=== PATIENT | male | born 1995 | race Caucasian/White ===

== ENCOUNTER 2021-06-12 11:54 | Inpatient (IN) | payer SELFPAY ==
[2021-06-12 11:54] VITALS: BMI 23.1
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
[2021-06-12 14:00] VITALS: BP 133/77; PULSE 78; RESP 18; TEMP 36.6; O2SAT 97
--- NOTE | 2021-06-12 16:11 | PC.SOCIAL ---
Patient attended group.
[2021-06-12 20:38] VITALS: BP 135/83; PULSE 71; RESP 19; TEMP 36.4; O2SAT 98
[2021-06-13 06:00] VITALS: BP 122/73; PULSE 69; RESP 17; TEMP 36.7; O2SAT 98
[2021-06-13] MEDS: escitalopram 10 mg Tablet 20 MG PO (08:52)
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
[2021-06-13] MEDS: ARIPiprazole 2 mg Tablet PO (11:14)
[2021-06-13 14:00] VITALS: BP 136/78; PULSE 79; RESP 18; TEMP 36.7; O2SAT 97
--- NOTE | 2021-06-13 16:56 | PC.SOCIAL ---
Patient attended group.
[2021-06-13 20:22] VITALS: BP 142/85; PULSE 67; RESP 17; O2SAT 98
[2021-06-14 06:00] VITALS: BP 128/85; PULSE 69; RESP 17; O2SAT 98
[2021-06-14] MEDS: escitalopram 10 mg Tablet 20 MG PO (08:45)
[2021-06-14] MEDS: ARIPiprazole 2 mg Tablet PO (08:45)
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
[2021-06-14 14:00] VITALS: BP 126/72; PULSE 95; RESP 17; TEMP 36.7; O2SAT 97
[2021-06-14 19:51] VITALS: BP 134/85; PULSE 82; RESP 17; TEMP 36.5; O2SAT 97
[2021-06-14] MEDS: trazodone 50 mg Tablet PO (21:02)
--- NOTE | 2021-06-14 22:14 | PC.NURSE ---
2101 Rec'd trazodone for sleep. It was effective.
[2021-06-15 06:00] VITALS: BP 110/65; PULSE 75; RESP 18; TEMP 36.5; O2SAT 97
--- NOTE | 2021-06-15 07:27 | P.NPUPN_ITS ---
Subjective NPU Subjective: He was found awake in bed sitting up and reading the Bible at 7:15 AM. He had some coffee and we mostly talked about the health benefits and side effects of coffee. Abilify will be increased to 5 mg today. He has not had side effects. He says that he slept well last night. Mental Status Exam MSE Comments: This is a 26-year-old appropriate weight male who appears approximately his stated age. He is pleasant and cooperative with the evaluation. He is dressed in hospital scrubs and his grooming is good. psychomotor activity mildly decreased. Speech is at a regular rate and rhythm, normal volume, good articulation, not pressured. Alert, oriented X3 Attention and concentration appears to be normal. Memory is intact Mood is depressed. Affect is constricted. He frequently has a half laugh and half smirk on his face after he says something. Thought process is logical and goal-directed. Thought content: Denies auditory and visual hallucinations. He is obviously delusional and has some paranoid ideation. He denies suicidal ideation. And no homicidal ideation. Fund of knowledge is average. Insight and judgment appear to be poor. Impulse control is poor. Cognition: Patient Appearance: Appropriate Ability to Follow Directions: Good Comprehension Ability: Understands Concepts Hallucination Type: None Delusion Description: Not Present Thought Process: Appropriate Affect: Affect Description: Appropriate Behavior: Patient Behavior: Appropriate Speech Pattern: Appropriate Vitals/I&O/Wt Last Vital Signs Temp 97.7 F 06/15/21 06:00 Pulse 75 06/15/21 06:00 Resp 18 06/15/21 06:00 BP 110/65 06/15/21 06:00 Pulse Ox 97 06/15/21 06:00 A&P Assessment and plan (1) Schizophrenia: Status: Acute (2) Suicidal ideation: Status: Acute Plan This is a 26-year-old male who sounds like he has a prodrome for schizophrenia and now has paranoia and delusions Plan: 1. Continue current medication. We will increaseAbilify to 5 mg today. Lexapro 20 mg. 2. Continue every 15 minute checks for safety. 3. Encourage individual, group and milieu therapies. 4. Encourage sober living treatment after discharge at the highest level of care to which he is willing to commit. 5. We will monitor for safety for himself in the community prior to discharge. Involuntary Hold Information 96 Hour Hold: 96 Hour Involuntary Admission: No Attestations NPU Medical Necessity Statement*: Inpatient hospitalization is medically necessary and the clinically appropriate intervention at this time. We will initiate medications and make changes as indicated. Coding Level of Care Code Acute Smash Fixer for [facility] Fwd Diagnoses Schizophrenia F20.9 Suicidal ideation R45.851
[2021-06-15] MEDS: ARIPiprazole 10 mg Tablet 5 MG PO (08:11)
[2021-06-15] MEDS: escitalopram 10 mg Tablet 20 MG PO (08:12)
--- NOTE | 2021-06-15 08:24 | PC.NURSE ---
In bed resting, arouses to voice. Informed that discharge was in computer. States his ride will not be able to be here until 100 PM. Denies pain. Denies SI/HI and AVH at this time. Reports no anxiety. Reports anxiety has improved.
--- NOTE | 2021-06-15 08:32 | PC.NURSE ---
AM Assessment In room resting, arouses to voice. Denies pain. Denies HI and AVH at this time. Does report passing suicidal thoughts with no plan. States, they just come and go, nothing I would act on. Contracted for safety. Verbalizes understanding to come and talk to staff if suicidal thoughts become more intrusive. In bed reading bible, calm and cooperative.
[2021-06-15 14:00] VITALS: BP 124/76; PULSE 70; RESP 16; TEMP 36.8; O2SAT 99
[2021-06-15 20:23] VITALS: BP 128/84; PULSE 66; RESP 16; TEMP 36.9; O2SAT 99
[2021-06-15] MEDS: trazodone 50 mg Tablet PO (20:49)
[2021-06-16 06:00] VITALS: BP 120/76; PULSE 88; RESP 18; TEMP 36.4; O2SAT 98
[2021-06-16] MEDS: escitalopram 10 mg Tablet 20 MG PO (09:20)
[2021-06-16] MEDS: ARIPiprazole 10 mg Tablet 5 MG PO (09:20)
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
[2021-06-16 14:00] VITALS: BP 145/85; PULSE 74; RESP 17; TEMP 36.7; O2SAT 95
[2021-06-16 19:50] VITALS: BP 143/79; PULSE 70; RESP 18; TEMP 37.1; O2SAT 99
[2021-06-16] MEDS: trazodone 50 mg Tablet PO (21:03)
[2021-06-17 06:00] VITALS: BP 113/73; PULSE 90; RESP 16; TEMP 36.3; O2SAT 98
[2021-06-17] MEDS: ARIPiprazole 10 mg Tablet PO (09:05)
[2021-06-17] MEDS: escitalopram 10 mg Tablet 20 MG PO (09:05)
--- NOTE | 2021-06-17 13:49 | P.NPUPN_ITS ---
Subjective NPU Subjective: He says that he is doing well. He slept well last night. He did not have any side effects from the Abilify 10 mg and Lexapro this morning. He asked if it would be considered masturbating if a woman rubbed her crotch against a sink. He says that he has seen women do that. At first I thought he said he had seen a woman do that here. And [facility] He has seen that before also. I told him that was certainly inappropriate for female to do that in front of a fawn. I told him I thought that was very unusual and had never seen that happen before. Mental Status Exam MSE Comments: This is a 26-year-old appropriate weight male who appears approximately his stated age.? He is pleasant and cooperative with the e valuation.? He is dressed in hospital scrubs and his grooming is good. psychomotor activity mildly decreased. Speech is at a regular rate and rhythm, normal volume, good articulation, not pressured. Alert, oriented X3 Attention and concentration appears to be normal. Memory is intact Mood is depressed.? Affect is constricted.? He frequently has a half laugh and half smirk on his face after he says something. Thought process is logical and goal-directed. Thought content:? Denies auditory and visual hallucinations.? He is obviously delusional and has some paranoid ideation.? He denies suicidal ideation.? And no homicidal ideation.? Fund of knowledge is average. Insight and judgment appear to be poor. Impulse control is poor. Cognition: Patient Appearance: Appropriate Ability to Follow Directions: Good Patient Orientation (long list): Person, Place, Time, Name and Age Comprehension Ability: Understands Concepts Hallucination Type: None Delusion Description: Not Present Thought Process: Appropriate Affect: Affect Description: Appropriate Behavior: Patient Behavior: Appropriate and Cooperative Speech Pattern: Appropriate and Clear Vitals/I&O/Wt Last Vital Signs Temp 97.4 F L 06/17/21 06:00 Pulse 90 06/17/21 06:00 Resp 16 06/17/21 06:00 BP 113/73 06/17/21 06:00 Pulse Ox 98 06/17/21 06:00 A&P Assessment and plan (1) Schizophrenia: Status: Acute (2) Suicidal ideation: Status: Acute Plan This is a 26-year-old male who sounds like he has a prodrome for schizophrenia and now has paranoia and delusions Plan: 1.? Continue current medication.? Increase Abilify to 10 mg daily.. Lexapro 20 mg. 2.? Continue every 15 minute checks for safety. 3.? Encourage individual, group and milieu therapies. 4.? Encourage sober living treatment after discharge at the highest level of care to which he is willing to commit. 5.? We will monitor for safety for himself in the community prior to discharge. Involuntary Hold Information 96 Hour Hold: 96 Hour Involuntary Admission: No Attestations NPU Medical Necessity Statement*: Inpatient hospitalization is medically necessary and the clinically appropriate intervention at this time. We will initiate medications and make changes as indicated. Coding Level of Care Code Acute Handbag Framer for Eric Broderick Diagnoses Schizophrenia F20.9 Suicidal ideation R45.858
[2021-06-17 14:00] VITALS: BP 138/93; PULSE 110; RESP 17; TEMP 36.7; O2SAT 98
[2021-06-17] MEDS: trazodone 50 mg Tablet PO (20:39)
[2021-06-17 22:00] VITALS: BP 132/78; PULSE 66; RESP 17; TEMP 36.8; O2SAT 99
[2021-06-18 05:21] VITALS: BP 118/71; PULSE 93; RESP 17; TEMP 36.7; O2SAT 98
[2021-06-18] MEDS: escitalopram 10 mg Tablet 20 MG PO (09:50)
[2021-06-18] MEDS: ARIPiprazole 10 mg Tablet PO (09:50)
--- NOTE | 2021-06-18 09:53 | PC.NURSE ---
AM assessment In day area putting puzzle together. To room to complete assessment. Flat affect noted. States slept well. Continues to report suicidal thoughts with no plan. States, those thoughts just kind of come and go. Contracted for safety if thoughts become worse or if he feels like hurting himself. States he will let this RN or other staff know if thoughts arise or become more intrusive. Denies pain. Denies HI and AVH at this time. Once assessment was finished went back to day area and started puzzle again.
[2021-06-18 14:00] VITALS: BP 135/81; PULSE 70; RESP 17; TEMP 36.8; O2SAT 99
--- NOTE | 2021-06-18 14:19 | P.NPUPN_ITS ---
Subjective NPU Subjective: He says that he is doing better. I asked him about his family killing people and he said that a lot of people dying and they put blame on the virus. He has kept a virus to really kill people. We then talked about what a virus was and went down that path. He certainly is not preoccupied with his family killing people now. It is much decreased. He denies any side effects from the Abilify 10 mg. Mental Status Exam MSE Comments: This is a 26-year-old appropriate weight male who appears approximately his stated age.? He is pleasant and cooperative with the evaluation.? He is dressed in hospital scrubs and his grooming is good. psychomotor activity mildly decreased. Speech is at a regular rate and rhythm, normal volume, good articulation, not pressured. Alert, oriented X3 Attention and concentration appears to be normal. Memory is intact Mood is mildly but better. Affect is constricted.? He frequently has a half laugh and half smirk on his face after he says something. Thought process is logical and goal-directed. Thought content:? Denies auditory and visual hallucinations.? He is obviously delusional and has some paranoid ideation.? They seem to be decreasing. He jorge es suicidal ideation.? And no homicidal ideation.? Fund of knowledge is average. Insight and judgment appear to be poor. Impulse control is poor. Cognition: Patient Appearance: Appropriate Ability to Follow Directions: Good Patient Orientation (long list): Person, Place, Name, Age, Day of Month and Year Comprehension Ability: Understands Concepts Hallucination Type: None Delusion Description: Not Present Thought Process: Disorganized Affect: Affect Description: Appropriate Behavior: Patient Behavior: Appropriate and Cooperative Speech Pattern: Appropriate and Clear Vitals/I&O/Wt Last Vital Signs Temp 98.0 F 06/18/21 05:21 Pulse 93 06/18/21 05:21 Resp 17 06/18/21 05:21 BP 118/71 06/18/21 05:21 Pulse Ox 98 06/18/21 05:21 A&P Assessment and plan (1) Schizophrenia: Status: Acute (2) Suicidal ideation: Status: Acute Plan This is a 26-year-old male who sounds like he has a prodrome for schizophrenia and now has paranoia and delusions Plan: 1.? Continue current medication.? Increase Abilify to 10 mg daily.. Lexapro 20 mg. 2.? Continue every 15 minute checks for safety. 3.? Encourage individual, group and milieu therapies. 4.? Encourage sober living treatment after discharge at the highest level of care to which he is willing to commit. 5.? We will monitor for safety for himself in the community prior to discharge. Involuntary Hold Information 96 Hour Hold: 96 Hour Involuntary Admission: No Attestations NPU Medical Necessity Statement*: Inpatient hospitalization is medically necessary and the clinically appropriate intervention at this time. We will initiate medications and make changes as indicated. Coding Level of Care Code Acute Doctor Of Podiatric Medicine for g Fwd Diagnoses Schizophrenia F20.9 Suicidal ideation R45.859
--- NOTE | 2021-06-18 14:40 | PC.SOCIAL ---
Patient attended and participated in group.
[2021-06-18 19:56] VITALS: BP 129/86; PULSE 76; RESP 18; TEMP 36.8; O2SAT 100
[2021-06-18] MEDS: trazodone 50 mg Tablet PO (21:10)
--- NOTE | 2021-06-18 23:34 | PC.NURSE ---
2109-requested trazodone for sleep. 2209- It was effective.
[2021-06-19 06:00] VITALS: BP 123/68; PULSE 86; RESP 18; TEMP 36.6; O2SAT 97
[2021-06-19] MEDS: ARIPiprazole 10 mg Tablet PO (08:25)
[2021-06-19] MEDS: escitalopram 10 mg Tablet 20 MG PO (08:25)
[2021-06-19 14:00] VITALS: BP 130/79; PULSE 70; RESP 16; TEMP 36.6; O2SAT 98
--- NOTE | 2021-06-19 19:40 | P.NPUPN_ITS ---
Subjective NPU Subjective: Patient presents today reporting that things are going better each day. He reports he is tolerating the medication. However he did express some concern about going home versus going to some kind of programming. Reporting that he feels like he may need some place in between here and home for things to work out the best. He reports he is eating and sleeping better. We discussed working with his family and the [place] facility to explore options for safe discharge. Mental Status Exam MSE Comments: This is a slender white male in hospital scrubs with adequate grooming and limited eye contact. No abnormal movements except for mild psychomotor retardation. Cooperative with exam in no acute distress. Speech was slightly decreased rate and volume. Mood described as better , affect slightly subdued with frequent inappropriate smiling. Thought process organized. Thought contact: patient denies suicidal or homicidal ideation, there were no delusions reported but continued concerns for slight paranoia, patient denied auditory or visual hallucinations, with some delay before answering Attention and concentration appeared intact and memory appeared mostly reliable but none were formally tested. Patient is alert and oriented times three. Insight and judgment appear fair and impulse control appears limited. Vitals/I&O/Wt Last Vital Signs Temp 98.2 F 06/19/21 21:12 Pulse 88 06/19/21 21:12 Resp 16 06/19/21 21:12 BP 123/81 06/19/21 21:12 Pulse Ox 96 06/19/21 21:12 A&P Assessment and plan (1) Schizophrenia: Status: Acute (2) Suicidal ideation: Status: Acute Plan This is a 26-year-old male who sounds like he has a prodrome for schizophrenia and now has paranoia and delusions Plan: 1.? Continue current medication.? Increased Abilify to 10 mg daily.??Lexapro 20 mg. 2.? Continue every 15 minute checks for safety. 3.? Encourage individual, group and milieu therapies. 4.? Encourage sober living treatment after discharge at the highest level of care to which he is willing to commit. 5.? We will work with his family and the [facility] to determine whether discharge prior to an opening is feasible. Involuntary Hold Information 96 Hour Hold: 96 Hour Involuntary Admission: No Attestations NPU Medical Necessity Statement*: Inpatient hospitalization is medically necessary and the clinically appropriate intervention at this time.? We will initiate medications and make changes as indicated. Likely length of stay 1 to 3 days. Coding Level of Care Code Acute Calculation Reviewer for g Fwd Diagnoses Schizophrenia F20.9 Suicidal ideation R45.851
[2021-06-19] MEDS: trazodone 50 mg Tablet PO (20:56)
[2021-06-19 21:12] VITALS: BP 123/81; PULSE 88; RESP 16; TEMP 36.8; O2SAT 96
--- NOTE | 2021-06-19 21:53 | PC.NURSE ---
Patient wanted medication to help him sleep. Trazadone was given.
[2021-06-20 06:00] VITALS: BP 108/66; PULSE 87; RESP 18; TEMP 36.6; O2SAT 97
[2021-06-20] MEDS: escitalopram 10 mg Tablet 20 MG PO (10:06)
[2021-06-20] MEDS: ARIPiprazole 10 mg Tablet PO (10:06)
--- NOTE | 2021-06-20 13:59 | W.PM.NPUPNS ---
Subjective NPU Subjective: Patient presents today reporting that he is feeling okay and having continued improvement. Staff reporting that he still is having some inappropriate smiling but that is resolving. He reports that he is eating and sleeping better. Social work spoke with father who is willing to discuss the possibility of discharge if Luis is willing to come home with the ultimate plan of going to the program in [place] that is going to have an opening probably for least a week. Mental Status Exam MSE Comments: This is a slender white male in hospital scrubs with adequate grooming and limited eye contact. No abnormal movements except for mild psychomotor retardation. Cooperative with exam in no acute distress. Speech was slightly decreased rate and volume. Mood described as better , affect slightly subdued with frequent inappropriate smiling.? Thought process organized. Thought contact: patient denies suicidal or homicidal ideation, there were no delusions reported but continued concerns for slight paranoia, patient denied auditory or visual hallucinations, with some delay before answering Attention and concentration appeared intact and memory appeared mostly reliable but none were formally tested. Patient is alert and oriented times three. Insight and judgment appear fair and impulse control appears limited. Vitals/I&O/Wt Last Vital Signs Temp 97.9 F 06/20/21 06:00 Pulse 87 06/20/21 06:00 Resp 18 06/20/21 06:00 BP 108/66 06/20/21 06:00 Pulse Ox 97 06/20/21 06:00 A&P Assessment and plan (1) Schizophrenia: Status: Acute (2) Suicidal ideation: Status: Acute Plan Plan: 1.? Continue current medication.? Increased Abilify to 10 mg daily.??Lexapro 20 mg. 2.? Continue every 15 minute checks for safety. 3.? Encourage individual, group and milieu therapies. 4.? Encourage sober living treatment after discharge at the highest level of care to which he is willing to commit. 5.? [facility] program likely with no opening for at least a week period will discuss the possibility of discharge prior to that opening with Luis in the morning as he has been fairly reticent to go home prior to having resolution of bad thoughts he was having before he came to the hospital. Involuntary Hold Information 96 Hour Hold: 96 Hour Involuntary Admission: No Attestations NPU Medical Necessity Statement*: Inpatient hospitalization is medically necessary and the clinically appropriate intervention at this time.? We will initiate medications and make changes as indicated.? Likely length of stay 1 to 3 days. Coding Level of Care Code Acute Communications Systems Engineer for g Fwd Diagnoses Schizophrenia F20.9 Suicidal ideation R45.855
[2021-06-20 14:00] VITALS: BP 119/80; PULSE 89; RESP 16; O2SAT 99
[2021-06-20] MEDS: trazodone 50 mg Tablet PO (20:21)
[2021-06-20 20:43] VITALS: BP 120/68; PULSE 84; RESP 16; O2SAT 97
[2021-06-21 05:41] VITALS: BP 122/66; PULSE 87; RESP 18; O2SAT 97
[2021-06-21] MEDS: ARIPiprazole 10 mg Tablet PO (09:09)
[2021-06-21] MEDS: escitalopram 10 mg Tablet 20 MG PO (09:09)
[2021-06-21 14:00] VITALS: BP 130/72; PULSE 70; RESP 17; TEMP 36.7; O2SAT 99
--- NOTE | 2021-06-21 15:09 | W.PM.NPUPNS ---
Subjective NPU Subjective: Patient presents today reporting that he is doing okay. We had a chance to talk with his father who expressed concerns for safety given him jumping out of the vehicle prior to admission. They are very much hoping tomorrow less go from here inpatient to their in [place]. Patient also reporting that he would feel safer if he went directly to [place] but could not really articulate why he feels this way. Still having some times that he seems to be being less than candid about what he is thinking. He reports he is eating and sleeping okay. Mental Status Exam MSE Comments: This is a slender white male in hospital scrubs with adequate grooming and limited eye contact. No abnormal movements except for mild psychomotor retardation. Cooperative with exam in no acute distress. Speech was slightly decreased rate and volume. Mood described as better , affect slightly subdued with continued inappropriate smiling.? Thought process organized. Thought contact: patient denies suicidal or homicidal ideation, there were no delusions reported but continued concerns for slight paranoia, patient denied auditory or visual hallucinations, with some delay before answering. Attention and concentration appeared intact and memory appeared mostly reliable but none were formally tested. Patient is alert and oriented times three. Insight and judgment appear fair and impulse control appears limited. Vitals/I&O/Wt Last Vital Signs Temp 97.9 F 06/20/21 06:00 Pulse 87 06/21/21 05:41 Resp 18 06/21/21 05:41 BP 122/66 06/21/21 05:41 Pulse Ox 97 06/21/21 05:41 A&P Assessment and plan (1) Schizophrenia: Status: Acute (2) Suicidal ideation: Status: Acute Plan Plan: 1.? Continue current medication.? Increased Abilify to 10 mg daily and consider increase to 15 mg.??Lexapro 20 mg. 2.? Continue every 15 minute checks for safety. 3.? Encourage individual, group and milieu therapies. 4.? Encourage sober living treatment after discharge at the highest level of care to which he is willing to commit. 5.? [facility] program likely with no opening for at least a week period? will discuss the possibility of discharge prior to that opening with Luis in the morning as he has been fairly reticent to go home prior to having resolution of bad thoughts he was having before he came to the hospital. Involuntary Hold Information 96 Hour Hold: 96 Hour Involuntary Admission: No Attestations NPU Medical Necessity Statement*: Inpatient hospitalization is medically necessary and the clinically appropriate intervention at this time.? We will initiate medications and make changes as indicated.? Likely length of stay 1 to 3 days, but evaluating whether its enough benefit and small enough risk to have discharge prior to admission in [place]. Coding Level of Care Code Acute Flat Spring Assembler for [facility] Fwd Diagnoses Schizophrenia F20.9 Suicidal ideation R45.851
[2021-06-21] MEDS: trazodone 50 mg Tablet PO (20:26)
[2021-06-21 20:56] VITALS: BP 122/74; PULSE 75; RESP 16; TEMP 36.8; O2SAT 97
[2021-06-22 05:31] VITALS: BMI 23.1
[2021-06-22 06:00] VITALS: BP 99/66; PULSE 91; RESP 17; TEMP 36.6; O2SAT 97
--- NOTE | 2021-06-22 07:51 | P.NPUPN_ITS ---
Subjective NPU Subjective: Patient is reporting that he is doing okay. We discussed his dad's concerns again about what happened before and trying to determine what makes the most sense safety baig. His response to whether he would be able to ride with his father without any concern is I guess so. We talked about him listening to music or any other options and not engage in any circumstance of his father that would lead to a bad outcome. We agreed we would work with the program to [place] tomorrow and try to understand if there is any guarantee as to the next bed date. Mental Status Exam MSE Comments: This is a slender white male in hospital scrubs with adequate grooming and limited eye contact. No abnormal movements except for mild psychomotor retardation. Cooperative with exam in no acute distress. Speech was slightly decreased rate and volume. Mood described as better , affect slightly subdued with decreases in inappropriate smiling.? Thought process organized. Thought contact: patient denies suicidal or homicidal ideation, there were no delusions reported but continued concerns for slight paranoia, patient denied auditory or visual hallucinations, with some delay before answering.? Attention and concentration appeared intact and memory appeared mostly reliable but none were formally tested. Patient is alert and oriented times three. Insight and judgment appear fair and impulse control appears limited. Vitals/I&O/Wt Last Vital Signs Temp 97.9 F 06/22/21 06:00 Pulse 91 06/22/21 06:00 Resp 17 06/22/21 06:00 BP 99/66 06/22/21 06:00 Pulse Ox 97 06/22/21 06:00 Weight last 48 hrs Weight 73.028 kg A&P Assessment and plan (1) Schizophrenia: Status: Acute (2) Suicidal ideation: Status: Acute Plan This is a 26-year-old male who sounds like he has a prodrome for schizophrenia and now has paranoia and delusions 1.? Continue current medication.? Increased Abilify to 10 mg daily and consider increase to 15 mg in the morning.??Lexapro 20 mg. 2.? Continue every 15 minute checks for safety. 3.? Encourage individual, group and milieu therapies. 4.? Encourage sober living treatment after discharge at the highest level of care to which he is willing to commit. 5.? Communicate with program in [place] for more exact date for bed and keep main risk-benefit of him discharging prior to that that opening. Involuntary Hold Information 96 Hour Hold: 96 Hour Involuntary Admission: No Attestations NPU Medical Necessity Statement*: Inpatient hospitalization is medically necessary and the clinically appropriate intervention at this time.? We will initiate medications and make changes as indicated.? Likely length of stay 3-5 days, but evaluating whether its enough benefit and small enough risk to have discharge prior to admission in [place]. Coding Level of Care Code Acute Claims Manager for [facility] Fwd Diagnoses Schizophrenia F20.9 Suicidal ideation R45.851
[2021-06-22] MEDS: ARIPiprazole 10 mg Tablet PO (09:12)
[2021-06-22] MEDS: escitalopram 10 mg Tablet 20 MG PO (09:12)
[2021-06-22 13:30] VITALS: BP 114/76; PULSE 79; RESP 17; TEMP 36.7; O2SAT 98
[2021-06-22 20:01] VITALS: BP 134/84; PULSE 68; RESP 18; TEMP 36.4; O2SAT 97
[2021-06-22] MEDS: trazodone 50 mg Tablet PO (20:45)
[2021-06-23 06:00] VITALS: BP 122/73; PULSE 90; RESP 18; TEMP 36.7; O2SAT 97
[2021-06-23] MEDS: escitalopram 10 mg Tablet 20 MG PO (09:20)
[2021-06-23] MEDS: ARIPiprazole 10 mg Tablet 15 MG PO (09:20)
[2021-06-23 14:00] VITALS: BP 124/76; PULSE 83; RESP 17; TEMP 36.8; O2SAT 99
--- NOTE | 2021-06-23 14:31 | W.PM.NPUPNS ---
Subjective NPU Subjective: Patient presents today reporting that he is adjusting to the change of the medication. He reports that he feels that he would be okay if the decision was made for him to be discharged. We discussed the fact that the [facility] is endorsing a possibility of an opening between this Wednesday and early next week. We agreed we would talk to his parents in the morning about possible discharge tomorrow. Mental Status Exam MSE Comments: his is a slender white male in hospital scrubs with adequate grooming and limited eye contact. No abnormal movements except for mild psychomotor retardation. Cooperative with exam in no acute distress. Speech was slightly decreased rate and volume. Mood described as better , affect slightly subdued with only occasional nervous smiling.? Thought process organized. Thought contact: patient denies suicidal or homicidal ideation, there were no delusions reported but continued concerns for slight paranoia, patient denied auditory or visual hallucinations.? Attention and concentration appeared intact and memory appeared mostly reliable but none were formally tested. Patient is alert and oriented times three. Insight and judgment appear fair and impulse control appears limited. Vitals/I&O/Wt Last Vital Signs Temp 98.3 F 06/23/21 14:00 Pulse 83 06/23/21 14:00 Resp 17 06/23/21 14:00 BP 124/76 06/23/21 14:00 Pulse Ox 99 06/23/21 14:00 Weight last 48 hrs Weight 73.028 kg A&P Assessment and plan (1) Schizophrenia: Status: Acute (2) Suicidal ideation: Status: Acute Plan This is a 26-year-old male who sounds like he has a prodrome for schizophrenia and now has paranoia and delusions 1.? Continue current medication.? Increased Abilify to 15 mg p.o. every morning.??Lexapro 20 mg. 2.? Continue every 15 minute checks for safety. 3.? Encourage individual, group and milieu therapies. 4.? Encourage sober living treatment after discharge at the highest level of care to which he is willing to commit. 5.? Likely discharge in the morning to home with a plan for parents to take to the [facility] program [place] as soon as there is an opening Involuntary Hold Information 96 Hour Hold: 96 Hour Involuntary Admission: No Attestations NPU Medical Necessity Statement*: Inpatient hospitalization is medically necessary and the clinically appropriate intervention at this time.? We will initiate medications and make changes as indicated.? Likely length of stay 1-3 days. Coding Level of Care Code Acute Sex Offender Treatment Professional for g Fwd Diagnoses Schizophrenia F20.9 Suicidal ideation R45.851
[2021-06-23 19:42] VITALS: BP 114/74; PULSE 70; RESP 20; TEMP 36.9; O2SAT 97
[2021-06-23] MEDS: trazodone 50 mg Tablet PO (20:05)
[2021-06-24 06:00] VITALS: BP 114/75; PULSE 82; RESP 20; TEMP 36.8; O2SAT 97
[2021-06-24] MEDS: ARIPiprazole 10 mg Tablet 15 MG PO (09:16)
[2021-06-24] MEDS: escitalopram 10 mg Tablet 20 MG PO (09:16)
[2021-06-24 14:00] VITALS: BP 114/75; PULSE 82; RESP 20; TEMP 36.8; O2SAT 97
[2021-06-24 16:49] VITALS: BP 114/75; PULSE 82; RESP 20; TEMP 36.8; O2SAT 97
--- NOTE | 2021-06-24 18:08 | P.NPUPN_ITS ---
Subjective NPU Subjective: Patient presents today reporting that he did speak to his father and that he believes his father is coming to pick him up tomorrow and going straight to [place]. He had spent much of the day yesterday attempting to speak in person with his father and eventually he was released but that he was not coming but this radio script writer was unable to speak to him to find out exactly what was said. We discussed that the plan would be for him to discharge tomorrow regardless of the situation in [place]. Mental Status Exam MSE Comments: This is a slender white male in hospital scrubs with adequate grooming and limited eye contact. No abnormal movements except for mild psychomotor retardation. Cooperative with exam in no acute distress. Speech was slightly decreased rate and volume. Mood described as looking forward to leaving, affect slightly subdued.? Thought process organized. Thought contact: patient denies suicidal or homicidal ideation, there were no delusions reported but continued concerns for slight paranoia, patient denied auditory or visual hallucinations.? Attention and concentration appeared intact and memory appeared mostly reliable but none were formally tested. Patient is alert and oriented times three. Insight and judgment appear fair and impulse control appears limited. Vitals/I&O/Wt Last Vital Signs Temp 98.3 F 06/24/21 16:49 Pulse 82 06/24/21 16:49 Resp 20 H 06/24/21 16:49 BP 114/75 06/24/21 16:49 Pulse Ox 97 06/24/21 16:49 A&P Assessment and plan (1) Schizophrenia: Status: Acute (2) Suicidal ideation: Status: Acute Plan This is a 26-year-old male who sounds like he has a prodrome for schizophrenia and now has paranoia and delusions 1.? Continue current medication.? Increased Abilify to 15 mg p.o. every morning. ??Lexapro 20 mg. 2.? Continue every 15 minute checks for safety. 3.? Encourage individual, group and milieu therapies. 4.? Encourage sober living treatment after discharge at the highest level of care to which he is willing to commit. 5.? Discharge in the morning to home with a plan for parents to take to the [facility] program in [place] as soon as there is an opening Involuntary Hold Information 96 Hour Hold: 96 Hour Involuntary Admission: No Attestations NPU Medical Necessity Statement*: Inpatient hospitalization is medically necessary and the clinically appropriate intervention at this time.? We will initiate medications and make changes as indicated.? Plan for discharge tomorrow. Coding Level of Care Code Acute School Community Relations Coordinator for [facility] Diagnoses Schizophrenia F20.9 Suicidal ideation R45.850
[2021-06-24] MEDS: trazodone 50 mg Tablet PO (20:12)
[2021-06-24 20:15] VITALS: BP 127/81; PULSE 71; RESP 18; TEMP 36.9; O2SAT 98
[2021-06-25 06:00] VITALS: BP 106/70; PULSE 111; RESP 20; TEMP 37; O2SAT 97
[2021-06-25] MEDS: ARIPiprazole 10 mg Tablet 15 MG PO (08:51)
[2021-06-25] MEDS: escitalopram 10 mg Tablet 20 MG PO (09:07)
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
[2021-06-25 14:00] VITALS: BP 106/70; PULSE 111; RESP 20; TEMP 37; O2SAT 97
[2021-06-25 19:52] VITALS: BP 130/90; PULSE 86; RESP 18; TEMP 36.4; O2SAT 97
== END 2021-06-25 19:53 | disposition home or self-care (01) | DRG 885 ==
PROVIDERS: Admitting Provider Psychiatry & Neurology Psychiatry; Visit Provider Psychiatry & Neurology Psychiatry
DX: F20.9 Schizophrenia, unspecified (principal); R45.851 Suicidal ideations
CPT/HCPCS: 97150; 97165